=== PATIENT | male | born 1985 | race Caucasian/White ===

== ENCOUNTER 2021-05-02 19:31 | Emergency (ER) | payer BC ==
[~2021-05-02 19:31] MED LIST: NAPROSYN500 MG PO; ZOFRAN ODT 4 MG4 MG SL
[2021-05-02 20:32] LABS: HEMOGLOBIN 14.3 gm/dl (14.0-17.5); RED BLOOD COUNT 4.91 M/UL (4.20-5.50); WHITE BLOOD COUNT 11.4 K/UL (4.5-11.0)
[2021-05-02 21:01] LABS: BUN/CREATININE RATIO 13 (0-10)
[2021-05-02] MEDS ORDERED: LODINE CAP 300300 MG PO (22:46)
[2021-05-02] MEDS ORDERED: OMNICEF 300 MG300 MG PO (22:46)
[2021-05-02] MEDS ORDERED: ZOFRAN ODT 4 MG4 MG PO (22:46)
== END 2021-05-02 23:05 | disposition home or self-care (01) ==
LOC: ER1 19:31
PROVIDERS: Physician Assistant
DX: J02.0 Streptococcal pharyngitis (principal); Z20.822 Contact with and (suspected) exposure to COVID-19; Z88.0 Allergy status to penicillin; F17.290 Nicotine dependence, other tobacco product, uncomplicated
CPT/HCPCS: 71045; 80053; 81001; 83605; 83690; 83735; 85025; 85652; 86140; 87040; 87081; 87086; 87880; 96374; 99283; J1885; J7030; U0002